=== PATIENT | female | born 1995 | race Caucasian/White ===

== ENCOUNTER 2021-02-04 01:10 | Outpatient (CLI) | payer BC ==
[~2021-02-04] VITALS: Ht 162.6 cm; Wt 63.2 kg
--- NOTE | 2021-02-04 01:25 | NUR ---
Ambulatory to unit for labor assessment, accompanied by spouse. Oriented to room, monitor, plan of care. Pt reports contractions since yesterday.
[2021-02-04 01:40] VITALS: BP 108/74; PULSE 86
[2021-02-04] MEDS ORDERED: PRENATAL TABLET PO (13:07)
[2021-02-04] MEDS ORDERED: OSCAL 500 TAB500 MG PO (13:07)
[2021-02-04] MEDS ORDERED: NATURAL MAGNES200 MG PO (13:08)
[2021-02-04] MEDS ORDERED: SLOW FE142 MG PO (13:08)
[2021-02-05] MEDS ORDERED: IBU600 MG PO (09:25)
== END 2021-02-04 03:57 | disposition home or self-care (01) ==
LOC: LDRO 01:10 → LDR 02:00 → LDRO 03:57
DX: O62.9 Abnormality of forces of labor, unspecified (principal); Z3A.39 39 weeks gestation of pregnancy
CPT/HCPCS: OP

== ENCOUNTER 2021-02-04 11:42 | Inpatient (IN) | payer BC ==
[~2021-02-04] VITALS: Ht 162.6 cm; Wt 62.3 kg
[2021-02-04] VITALS (41 sets, daily range): BP systolic 91–123; BP diastolic 53–78; PULSE 69–124; TEMP 97.9–98.9
--- NOTE | 2021-02-04 11:50 | NUR ---
Pt arrived on unit ambulatory and escorted by with complaints of contractions and possible SROM this morning in clinic. EFM and toco monitors started. SVE by this RN with positive amnio-trace. Vital signs WNL. Dr. Salguero on the unit. Information reviewed with FHR tracing reviewed. Orders for labor admission received. Plan of care reviewed with pt and at the bedside.
[2021-02-04 12:44] LABS: BASO % 0.2 % (0.0-2.0); EOS % 0.1 % (0-4.0); GRAN % 80.8 % (42.2-75.2); HEMOGLOBIN 12.5 g/dl (12.5-16.0); LYMPH # 1.2 (1.2-3.4); LYMPH % 11.6 % (20.0-51.0); MEAN CELL VOLUME 90 fl (80.0-100.0); MEAN CORPUSCULAR HEMOGLOBIN 31 pg (27.0-31.0); MEAN CORPUSCULAR HGB CONC 34 g/dl (33.0-37.0); MEAN PLATELET VOLUME 11.9 fl (7.4-10.4); MONO # 0.7 (0.1-0.6); MONO % 6.9 % (1.7-9.3); PLATELET COUNT 137 K/mm3 (130-400); REDCELL DISTRIBUTION WIDTH-CV 13.3 % (11.5-14.5)
[2021-02-04 12:49] LABS: HEMATOCRIT 36.8 % (37.0-47.0)
[2021-02-04] MEDS ORDERED: PRENATAL TABLET PO (13:07)
[2021-02-04] MEDS ORDERED: OSCAL 500 TAB500 MG PO (13:07)
[2021-02-04] MEDS ORDERED: NATURAL MAGNES200 MG PO (13:08)
[2021-02-04] MEDS ORDERED: SLOW FE142 MG PO (13:08)
--- NOTE | 2021-02-04 22:45 | NUR ---
SVE [place],
[2021-02-05] VITALS (20 sets, daily range): BP systolic 87–151; BP diastolic 46–68; PULSE 85–150; TEMP 97.4–99.4
--- NOTE | 2021-02-05 03:03 | NUR ---
Dr Salguero into room. Pt prepped for delivery. Pt tired, pushing well.
--- NOTE | 2021-02-05 03:25 | NUR ---
male by Dr Salgueor.
--- NOTE | 2021-02-05 03:28 | NUR ---
Placenta delivers spont and intact with 3 vessell cord. Pitocin gtt to bolus rate.
--- NOTE | 2021-02-05 03:40 | NUR ---
Perineal repair complete. Pericare completed, ice pack to perineum, bed together.
[2021-02-05] MEDS ORDERED: IBU600 MG PO (09:25)
--- NOTE | 2021-02-05 09:36 | NUR ---
Initial visit; Parents thanked [employer] for offering congratulations and God's blessings for the of their son. [facility]ure Packer thanked family for choosing [facility].
[2021-02-06 02:00] VITALS: BP 98/60; PULSE 89; TEMP 98.1
[2021-02-06 08:03] VITALS: BP 102/64; PULSE 70; TEMP 98.1
== END 2021-02-06 13:11 | disposition home or self-care (01) | DRG 807 ==
LOC: LDRO 11:42 → LDR 12:09 → OB 02-05 07:25
PROVIDERS: Obstetrics & Gynecology; ADMIT Student in an Organized Health Care Education/Training Program
PROC: 10E0XZZ Delivery of Products of Conception, External Approach (ICD-10-PCS; principal; 2021-02-05)
PROC: 0KQM0ZZ Repair Perineum Muscle, Open Approach (ICD-10-PCS; 2021-02-05)
DX: O99.02 Anemia complicating childbirth (principal); Z37.0 Single live birth; O70.1 Second degree perineal laceration during delivery; Z3A.40 40 weeks gestation of pregnancy
CPT/HCPCS: J2590; J7120